=== PATIENT | male | born 1955 | race Caucasian/White ===

== ENCOUNTER 2020-02-07 19:13 | Emergency (ER) | payer OTHER, SELFPAY ==
[2019-12-11 18:00] VITALS: BMI 24.4
[2020-02-07 19:14] VITALS: BP 135/83; PULSE 78; RESP 15; TEMP 36.3; O2SAT 99; BMI 25.0
--- NOTE | 2020-02-07 19:19 | ED.VIS.GEN ---
History of Present Illness Chief Complaint: Laceration Informant: Patient Narrative: 64-year-old male presents with laceration to the dorsum of the left hand which she sustained while using a log splitter. He states he pulled his hand out and caught a piece of the metal on the outside which cut his hand. He states his last tetanus is 3 years ago. He states his pain is at a 2. He does not have any numbness or tingling. [id number]. Past Medical History - Allergies and Home Meds Allergies/Adverse Reactions: Allergies No Known Allergies Allergy (Verified 02/07/20 19:17) Primary Care Physician: Eduardo Ramirez MD [Primary Care Provider] - Surgical History: - Smoking Status: Never smoker - Family History Paternal Family History: Family History (Last Reviewed 12/11/19 @ 17:[address] Donn Danw MD) Father Diabetes Heart disease Mother Thyroid disorder Brother Myocardial infarction Family History: Reports: - - Liver cancer Review of Systems General: Denies: Chills, Fever, Sweats Eyes: Denies: Visual changes - bilaterally, Diplopia ENT: Denies: Rhinorrhea, Sore throat Cardiovascular: Denies: Chest pain, Palpitations Respiratory: Denies: Dyspnea, Cough, Dyspnea on exertion Gastrointestinal: Denies: Abdominal pain, Nausea, Vomiting, Diarrhea, Melena, Hematochezia Genitourinary: Denies: Dysuria, Hematuria, Frequency Musculoskeletal: Denies: Back pain, Extremity Pain Skin: Reports: Wounds - Laceration dorsum of left hand. Denies: Rash Neurological: Denies: Headache, Weakness, Numbness Physical Exam Vital Signs/Narrative: Vital Signs Temp Pulse Resp BP Pulse Ox 02/07/20 19:14 97.3 F L 78 15 135/83 H 99 Inital Vital Signs reviewed: Yes General: Well nourished, Well developed, No Acute Distress Head: Normocephalic Cardiovascular: Regular rate Respiratory: No distress Extremities: - - Mild tenderness to palpation around the laceration on the dorsum of the left hand. Left hand is neurovascular intact with brisk cap refill to all 5 fingers. Skin: - - 2 cm laceration dorsum of left hand. Neurological: Alert, Oriented x3 Psychological: Normal affect Diagnostic/Tx/Re-eval - Medical Decision Making Presents with laceration to the dorsum of the left hand. This is approximately 2 cm. Patient had 4 sutures placed with good approximation of the wound margins. He tolerated procedure well. Patient was given instructions on wound care as well as monitoring for signs of infection. His tetanus immunization is up-to-date. He will follow-up in 2 weeks to have sutures removed. Impression: 1. 2 cm left hand laceration Procedures - Lacerations No standard instances Depth: Skin Shape: Linear Prep: Sterile Conditions, Chlorhexadine Laceration repair: Irrigated, Lidocaine with epi Irrigated (ml): 500 Number of Sutures/Shayy: 4 Suture Information: Ethilon, 4-0 ED Disposition - Plan for ED Patient: Disposition: Home or Assisted Living Instructions: ED Laceration Hand Referrals: Eduardo Ramirez MD [Primary Care Provider] -
== END 2020-02-07 20:23 | disposition home or self-care (01) ==
PROVIDERS: Emergency Provider Student in an Organized Health Care Education/Training Program; PCP Family Medicine
DX: S61.412A Laceration without foreign body of left hand, initial encounter (principal); W27.8XXA Contact with other nonpowered hand tool, initial encounter; Y93.9 Activity, unspecified; Y92.9 Unspecified place or not applicable; Y99.9 Unspecified external cause status
CPT/HCPCS: 12001; 99282

== ENCOUNTER 2020-05-16 08:01 | Day surgery (SDC) | payer OTHER, SELFPAY ==
[2020-04-18 09:00] VITALS: BMI 25.4
[2020-05-16 08:20] VITALS: BP 123/71; PULSE 87; RESP 16; TEMP 36.7; O2SAT 100; BMI 24.7
[2020-05-16 08:30] LABS: Bedside Glucose 149 mg/dL (70-110)
--- NOTE | 2020-05-16 08:38 | HP_ITS ---
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 Is patient in pain?: No Allergies iron Allergy (Mild, Verified 04/18/20 09:02) hot flashes Medications Levothyroxine [Synthroid] 112 mcg PO DAILY 05/14/17 [History Confirmed 04/18/20] Metformin HCl [Metformin HCl ER] 1,000 mg PO BID 05/14/17 [History Confirmed 04/18/20] dulaglutide 1.5 mg/0.5 mL subcutaneous pen injector 1.5 mg SC QWEEK #2 ml 12/11/19 [Rx Confirmed 04/18/20] pen needle, diabetic 31 gauge x /16 See Rx Instructions .ROUTE .MEDSUPPLY #1,200 ea 12/11/19 [History Confirmed 04/18/20] flash glucose sensor See Rx Instructions .ROUTE .MEDSUPPLY #6 ea 01/28/20 [Rx Confirmed 04/18/20] empagliflozin 25 mg tablet 25 mg PO DAILY #90 tab 02/18/20 [Rx Confirmed 04/18/20] insulin aspart U-100 100 unit/mL (3 mL) subcutaneous pen 8 unit SC TID ml 04/18/20 [History] [facility] Medical History Diffuse peritonitis (Acute) Ruptured suppurative appendicitis (Acute) Ruptured appendix (Acute) Appendicitis (Acute) History of broken leg (Acute) Hyperlipidemia (Acute) Hypothyroidism (Acute) Type 2 diabetes mellitus (Acute) hx broken back (Acute) Surgical History Status post complete thyroidectomy (Chronic) H/O thyroidectomy (Acute) History of appendectomy (Acute) Family History Father Diabetes Heart disease Hypertension Mother Thyroid disorder Brother Myocardial infarction Social History (Updated 04/18/20 @ 09:[address] Luisito Shaikh MD) Smoking Status: Never smoker alcohol intake: never substance use type: does not use what type of physical activity do you participate in: walking HPI HPI Surgical H&P: Yes HPI: CAILIN SHARPE, is a 64 M who presents to the office today for Evaluation for endoscopy. Patient has never had a colonoscopy he has no family history of colon cancer he has been moving his bowels regularly without difficulty he is not experiencing any abdominal pain and his weight has been stable. He will occasionally have some rectal bleeding when his hemorrhoids flareup. ROS General General: No weight change, appetite, fatigue, colon cancer, breast cancer or weakness HEENT HEENT: No difficulty swallowing, eye injury, eye surgery, swollen glands or hoarseness Endo Endocrine: Yes thyroid disease and diabetes mellitus; no thyroid cancer, Hair loss, heat intolerance or cold intolerance Skin Skin: No rash or changing moles Breast Breast: No left breast lump, right breast lump, nipple discharge, breast pain, abnormal mammogram, abnormal US or breast enlargement Musc Musculoskeletal: No back problems, arthritis, rheumatoid arthritis, gout or joint pain Cardio Cardiovascular: No murmur, pacemaker, heart disease, atrial fibrillation, high blood pressure, heart attack, heart stent, palpitations, shortness of breat with exertion or chest pain Psych Psychiatric: No depression, anxiety or hearing voices Resp Respiratory: No shortness of breath, No sleep apnea, No cough, No COPD, No asthma, No emphysema, No wheezing Gastro Gastrointestinal: No abdominal pain, No nausea or vomiting, No diarrhea, No constipation, Yes blood in stool, No acid reflux, Yes hemorrhoids, No ulcers, No gallbladder problem, No black,tarry stools Casey Hematologic: No blood thinners, No blood disorders, No bleeding, No anemia, No blood clots Neuro Neurologic: No system reviewed and no additional complaints, except as docu, No as per HPI, No abnormal walking, No abnormal hearing, No abnormal movements, No abnormal speech, No behavioral changes, No burning sensations, No confusion, No seizure-like activity, No unsteadiness, No dizziness, No localized weakness, No frequent falls, No headache(s), No lack of coordination, No loss of vision, No memory loss, No numbness, No other visual disturbances, No radiating pain, No restless legs, No sensory deficit, No fainting, No tingling, No tremor(s), No weakness, No other Exam Const General: no acute distress, well developed, well hydrated Orientation: oriented to person, oriented to place, oriented to time [facility] Head: normocephalic, atraumatic Ears: external ears normal Mouth: moist mucous membranes Eyes Sclera: sclerae normal Pupils: normal by confrontation Neck Neck: no lymphadenopathy noted Neck mass: No Thyroid: thyroid normal, symmetrical Chest Chest palpation & inspection: normal inspection of the chest Breast Palpation: No nipple discharge Resp Effort & Inspection: normal respiratory effort Auscultation: clear to auscultation bilaterally Percussion: percussion normal Cardio Rate: regular rate Rhythm: regular rhythm Heart Sounds: no murmurs GI Palpation: soft, no hepatosplenomegaly, no masses, nontender Rectal Exam: other Other: Rectal exam deferred. Extrem General: normal to inspection, no clubbing, cyanosis or edema Assessment & Plan Problems 1. Encounter for screening colonoscopy Z12.11 Plan I have discussed the above with the patient. I have offered the patient colonoscopy for evaluation. I have explained the risks/benefits of the procedure and described the procedure. I have discussed the risks with the patient, including but not limited to: infection, bleeding, perforation of the GI tract requiring emergency surgery, inability to complete the procedure, injury to any internal organs, complications of anesthesia, etc. - the patient understands and agrees to proceed. I have answered all the patient's questions to the patient's satisfaction and the patient has no further questions. The patient has been given instructions for the colon cleansing preparation. Coding Level of Care Code Off vis,est,level 3 Diagnoses Encounter for screening colonoscopy Z12.11 COVID (Procedure Consent) Procedure Criteria Procedure Criteria: Yes Elective The surgeon/proceduralist and patient have discussed in detail the risk of exposure to and/or potential harm posed by the COVID-19 virus with having a surgery/procedure at this time versus the risk of? delaying the surgery/procedure. It is not possible to know either the risk of delaying the surgery or procedure or chance of getting an infection with perfect accuracy, but a joint decision was made between the patient and the surgeon/proceduralist ?to proceed at this time with the scheduled surgery/procedure as indicated on the consent form. I have re-examined the patient. There are no clinical changes since date of exam.
--- NOTE | 2020-05-16 09:15 | COLBX_PTH ---
PATIENT: CAILIN SHARPE LOC: EN U#:[id number] AGE/SX: 64/M ROOM: RE05/16/[address]: Dr. Luisito Shaikh MD : 1955 BED: DIS: 05/16/2020 SPEC #: [id number] RECD: 05/16/20 11:41 STATUS: GANESH JOHNNA #: [id number] OLAF: 05/16/20 09:[address]: Luisito Shaikh DEPT: SURGICAL PATHOLOGY RECD BY: Rocío Mcmullen ENTERED: 05/16/20 13:06 SP TYPE: COLON BX CLARK DR: Luisito Diaz, INSO[employer] AND HEEL STIFFENER-C Tissues: Sigmoid colon biopsy Procedures: Surgery Specimen Level IV HEADER OPERATION: Colonoscopy (MAC) PRE-OP DIAGNOSIS: Screening TISSUE SUBMITTED: Sigmoid colon polyp MICROSCOPIC DIAGNOSIS Sigmoid colon polyp, biopsy: Tubular adenoma. AM:megan 05/17/20 MICROSCOPIC DESCRIPTION Slides are reviewed. GROSS DESCRIPTION Received in fixative is one container labeled with the patient's name and designated sigmoid polyp. The specimen consists of multiple irregular fragments of soft tissue mixed with fecal material that in aggregate measure 2.5 x 1 x 0.2 cm. The specimen is totally submitted in one cassette. The specimen predominantly consists of fecal material. / SJ:rg 05/16/20 TC:5 CPT: 18200
--- NOTE | 2020-05-16 09:39 | OP.COLON_ITS ---
Patient Name: Félix Cole Procedure Date: 05/16/2020 9:10 AM Date of : 1955 Age: 64 Procedure: Colonoscopy Indications: Screening for colorectal malignant neoplasm Providers: Luisito Shaikh MD Referring MD: Darcy Plaza Medicines: See the Anesthesia note for documentation of the administered medications Patient Profile: This is a 64 year old male. Refer to note in patient chart for documentation of history and physical. Last Colonoscopy: none. The patient's first colonoscopy is today. Complications: No immediate complications. Procedure: Pre-Anesthesia Assessment: - Prior to the procedure, a History and Physical was performed, and patient medications and allergies were reviewed. The patient's tolerance of previous anesthesia was also reviewed. The risks and benefits of the procedure and the sedation options and risks were discussed with the patient. All questions were answered, and informed consent was obtained. Prior Anticoagulants: The patient has taken no previous anticoagulant or antiplatelet agents. ASA Grade Assessment: II - A patient with mild systemic disease. After reviewing the risks and benefits, the patient was deemed in satisfactory condition to undergo the procedure. After I obtained informed consent, the scope was passed under direct vision. Throughout the procedure, the patient's blood pressure, pulse, and oxygen saturations were monitored continuously. The adult colonoscope was introduced through the anus and advanced to the cecum, identified by appendiceal orifice and ileocecal valve. The colonoscopy was performed without difficulty. The patient tolerated the procedure well. The quality of the bowel preparation was adequate to identify polyps 6 mm and larger in size. Scope In: 9:18:44 AM Scope Withdrawal Time 0 hours 10 minutes 3 seconds Scope Out: 9:36:08 AM Total Procedure Duration Time 0 hours 17 minutes 24 seconds Findings: A 5 mm polyp was found in the sigmoid colon. The polyp was sessile. The polyp was removed with a hot snare. Resection and retrieval were complete. Non-bleeding internal hemorrhoids were found during retroflexion. The hemorrhoids were mild and small. The exam was otherwise without abnormality. Impression: - One 5 mm polyp in the sigmoid colon, removed with a hot snare. Resected and retrieved. - Non-bleeding internal hemorrhoids. - The examination was otherwise normal. Recommendation: - Discharge patient to home. - Resume previous diet. - Continue present medications. - Await pathology results. - Repeat colonoscopy in 5-10 years for surveillance. - Return to my office in 1 week. Procedure Code(s): --- Professional --- 55643, Colonoscopy, flexible; with removal of tumor(s), polyp(s), or other lesion(s) by snare technique Diagnosis Code(s): --- Professional --- Z12.11, Encounter for screening for malignant neoplasm of colon D12.5, Benign neoplasm of sigmoid colon K64.8, Other hemorrhoids CPT copyright 2017 [employer]. All rights reserved. The codes documented in this report are preliminary and upon life insurance sales review may be revised to meet current compliance requirements. MD Luisito Chew MD 05/16/2020 9:39:17 AM This report has been signed electronically. Number of Addenda: 0 Note Initiated On: 05/16/2020 9:10 AM
--- NOTE | 2020-05-16 09:40 | OP.CCLET_ITS ---
05/16/2020 Darcy Plaza Re : Colonoscopy procedure for Félix Cole Dear Joe This procedure was performed on Saturday, May 16, 2020. My impressions and recommendations are as follows: Impressions : - One 5 mm polyp in the sigmoid colon, removed with a hot snare. Resected and retrieved. - Non-bleeding internal hemorrhoids. - The examination was otherwise normal. Recommendations : - Discharge patient to home. - Resume previous diet. - Continue present medications. - Await pathology results. - Repeat colonoscopy in 5-10 years for surveillance. - Return to my office in 1 week. My findings are described in the full procedure note, which is enclosed. If I can be of further assistance, please feel free to contact me at Doctor phone number(s): , Fax: [phone], Work: . Sincerely, MD Luisito Chew MD 05/16/2020 9:39:17 AM This report has been signed electronically.
[2020-05-16 09:42] VITALS: BP 123/71; BP 131/71; PULSE 86; RESP 16; TEMP 36.6; O2SAT 100
[2020-05-16 09:45] VITALS: BP 123/71; BP 132/82; PULSE 80; RESP 16; O2SAT 100
[2020-05-16 09:50] VITALS: BP 122/77; BP 123/71; PULSE 79; RESP 16; O2SAT 100
[2020-05-16 09:55] VITALS: BP 123/71; BP 125/77; PULSE 82; RESP 16; O2SAT 100
[2020-05-16] MEDS: Lactated Ringers 1,000 ML 100 ML IV (09:57)
[2020-05-16 10:14] VITALS: BP 123/71
== END 2020-05-16 10:16 | disposition home or self-care (01) ==
LOC: EN 08:03 → AC 08:03
PROVIDERS: PCP Nurse Practitioner Family; Referring Provider Nurse Practitioner Family; Visit Provider Surgery
PROC: 0DJD8ZZ Inspection of Lower Intestinal Tract, Via Natural or Artificial Opening Endoscopic (ICD-10-PCS; CPT 45378; principal; 2020-05-16 09:10)
DX: Z12.11 Encounter for screening for malignant neoplasm of colon (principal); D12.5 Benign neoplasm of sigmoid colon; K64.8 Other hemorrhoids; Z20.828 Contact with and (suspected) exposure to other viral communicable diseases; E11.9 Type 2 diabetes mellitus without complications; E78.5 Hyperlipidemia, unspecified; E03.9 Hypothyroidism, unspecified; Z79.4 Long term (current) use of insulin; Z79.899 Other long term (current) drug therapy
CPT/HCPCS: 45385; 82962; 87426; 88305; J7120

== ENCOUNTER → 2020-12-12 16:14 | Outpatient (CLI) | payer OTHER, SELFPAY ==
[2020-12-12 15:59] VITALS: BMI 25.2
[2020-12-12 17:30] LABS: Microalbumin,Random Urine < 5.0 mg/L (NO RANGE EST.)
[2020-12-12 17:50] LABS: Vitamin D,25 Hydroxy 31.7 ng/mL
[2020-12-12 17:52] LABS: ALB/GLOB Ratio 0.9 RATIO (0.9-2.4); AST(SGOT) 14 U/L (15-37); Alanine Aminotransfer ALT/SGPT 19 U/L (16-61); Albumin, Serum 3.6 g/dL (3.2-5.0); Alkaline Phosphatase 75 U/L (45-117); Anion Gap 9 (5-15); BUN 20 mg/dL (7-18); Chloride 103 mmol/L (98-107); Cholesterol 213 mg/dL (200); Creatinine, Serum 1.11 mg/dL (0.70-1.30); EST Glomerular Filtration Rate 71 mL/min (>60); Est Glom Filt Rate - Afr Amer 86 mL/min (>60); Globulin 3.9 g/dL (2.2-4.2); Glucose 86 mg/dL (74-106); High Density Lipoprotein 67 mg/dL; Potassium 3.9 mmol/L (3.5-5.1); Protein, Total 7.5 g/dL (6.4-8.2); Sodium Level 138 mmol/L (136-145); T4 Free Direct 1.24 ng/dL (0.76-1.46); Thyroid Stim Hormone (TSH) 0.89 uIU/mL (0.358-3.74); Triglycerides 120 mg/dL; Very Low Density Lipoprotein 24 mg/dL (5-40)
== END ==
PROVIDERS: PCP Nurse Practitioner Family; Referring Provider Internal Medicine Endocrinology, Diabetes & Metabolism; Visit Provider Internal Medicine Endocrinology, Diabetes & Metabolism
DX: E11.9 Type 2 diabetes mellitus without complications (principal); E03.9 Hypothyroidism, unspecified; E55.9 Vitamin D deficiency, unspecified
CPT/HCPCS: 36415; 80053; 80061; 82043; 82306; 82570; 84439; 84443

== ENCOUNTER → 2022-04-24 | Outpatient (CLI) | payer OTHER, SELFPAY ==
[2022-04-24 17:23] LABS: Microalbumin,Random Urine < 5.0 mg/L (NO RANGE EST.)
[2022-04-24 17:29] LABS: Vitamin D,25 Hydroxy 99.2 ng/mL
[2022-04-24 17:35] LABS: ALB/GLOB Ratio 0.9 RATIO (0.9-2.4); AST(SGOT) 21 U/L (15-37); Alanine Aminotransfer ALT/SGPT 27 U/L (16-61); Albumin, Serum 3.5 g/dL (3.2-5.0); Alkaline Phosphatase 89 U/L (45-117); Anion Gap 6 (5-15); BUN 26 mg/dL (7-18); BUN/Creat Ratio 21.5 RATIO (10-20); Calcium,Total 9.5 mg/dL (8.5-10.1); Chloride 103 mmol/L (98-107); Cholesterol 207 mg/dL (200); Creatinine, Serum 1.21 mg/dL (0.70-1.30); EST Glomerular Filtration Rate 64 mL/min (>60); Est Glom Filt Rate - Afr Amer 77 mL/min (>60); Globulin 3.9 g/dL (2.2-4.2); Glucose 172 mg/dL (74-106); High Density Lipoprotein 64 mg/dL; Protein, Total 7.4 g/dL (6.4-8.2); Sodium Level 136 mmol/L (136-145); T4 Free Direct 1.08 ng/dL (0.76-1.46); Thyroid Stim Hormone (TSH) 0.89 uIU/mL (0.358-3.74); Triglycerides 261 mg/dL; Very Low Density Lipoprotein 52 mg/dL (5-40)
== END | disposition home or self-care (01) ==
LOC: LAB 16:32
PROVIDERS: PCP Nurse Practitioner Family; Referring Provider Internal Medicine Endocrinology, Diabetes & Metabolism; Visit Provider Internal Medicine Endocrinology, Diabetes & Metabolism
DX: E11.9 Type 2 diabetes mellitus without complications (principal); E03.9 Hypothyroidism, unspecified; E55.9 Vitamin D deficiency, unspecified
CPT/HCPCS: 36415; 80053; 80061; 82043; 82306; 82570; 84439; 84443

== ENCOUNTER → 2023-08-19 | Outpatient (CLI) | payer MEDICARE, OTHER, SELFPAY ==
[2023-08-19 17:43] LABS: AST(SGOT) 28 U/L (15-37); Alanine Aminotransfer ALT/SGPT 38 U/L (16-61); Albumin, Serum 3.9 g/dL (3.2-5.0); Alkaline Phosphatase 86 U/L (45-117); Anion Gap 5 (5-15); BUN 24 mg/dL (7-18); BUN/Creat Ratio 20.5 RATIO (10-20); Calcium,Total 9.3 mg/dL (8.5-10.1); Chloride 106 mmol/L (98-107); Cholesterol 197 mg/dL (200); Creatinine, Serum 1.17 mg/dL (0.70-1.30); EST Glomerular Filtration Rate 66 mL/min (>60); Est Glom Filt Rate - Afr Amer 80 mL/min (>60); Glucose 96 mg/dL (74-106); High Density Lipoprotein 68 mg/dL; Protein, Total 7.9 g/dL (6.4-8.2); Sodium Level 138 mmol/L (136-145); T4 Free Direct 1.22 ng/dL (0.76-1.46); Thyroid Stim Hormone (TSH) 0.82 uIU/mL (0.358-3.74); Triglycerides 247 mg/dL; Very Low Density Lipoprotein 49 mg/dL (5-40)
--- OUTSIDE RECORDS SUMMARY | 2023-08-19 19:04 | XMS RPT_ITS | CCD ---
Author Name Unknown Address [address] [place] [address] Organization [facility] Care Team Providers Care Rn Family Name Role Phone Genesis Wolfe PA-C Unavailable Joe CUTTING AND BONING SUPERVISOR.MARKETING SENIOR RECRUITER, DNPLuisito Primary Care Provider Najma Goodrich MD Primary Care Provider NAJMA GOODRICH Attending Unavailable NAJMA GOODRICH Primary Care Unavailable LUISITO DIAZ Primary Care Unavailable NAJMA GOODRICH Attending Unavailable Allergies Allergy Classification Reported Allergen(s) Allergy Type Date of Onset Reaction(s) Facility (1 source) Iron Drug Allergy 04-18-2020 Other: See Comments [facility] (1 source) Niacin Drug Allergy 06-04-2023 Other: See Comments [facility] Medications Completed/Discontinued Medications Medication Drug Class(es) Dates Sig (Normalized) Sig (Original) CALCIUM CARBONATE (4 sources) Start: 05-27-2017 take 1 tablet by mouth once daily EQL NIACIN FLUSH FREE 500 MG CAPS One tablet by mouth daily INOSITOL NIACINATE [id number] Tammy Mendoza Problems Active Problems Problem Classification Problem Date Documented Date Episodic/Chronic Diabetes mellitus without complication (6 sources) Type 2 diabetes mellitus; Translations: [Insulin treated type 2 diabetes mellitus] Onset: 07-01-1989 05-27-2017 Chronic Disorders of lipid metabolism (3 sources) Hyperlipidemia; Translations: [Hyperlipidemia, unspecified] Onset: 03-17-2021 03-17-2021 Chronic Immunizations and screening for infectious disease (1 source) Vaccination needed; Translations: [Encounter for immunization] Episodic Other ear and sense organ disorders (1 source) Impacted cerumen in right ear; Translations: [Impacted cerumen, right ear] 06-04-2023 Episodic Other male genital disorders (3 sources) Secondary erectile dysfunction; Translations: [Male erectile dysfunction, unspecified] Onset: 03-17-2021 03-17-2021 Chronic Thyroid disorders (3 sources) Hypothyroidism; Translations: [Acquired hypothyroidism] Onset: 05-27-2017 05-27-2017 Chronic Unclassified (2 sources) Thyroidectomy ; Translations: [Postprocedural hypothyroidism] Onset: 05-27-2017 05-27-2017 Unclassified (1 source) No current problems or disability 05-27-2017 Past or Other Problems Problem Classification Problem Date Documented Da te Episodic/Chronic Appendicitis and other appendiceal conditions (2 sources) Acute appendicitis with generalized peritonitis; Translations: [Acute appendicitis with generalized peritonitis] Onset: 05-27-2017 05-27-2017 Episodic Results Test Name Value Interpretation Reference Range Facil ity Vital Signs Date Time Vital Sign Value Performing Clinician Facility 06-04-2023 15:33-0500 Body weight 68.67 kg Najma Goodrich MD Work Phone: [facility] 06-04-2023 15:33-0500 Diastolic blood pressure 80 mm[Hg] Najma Goodrich MD Work Phone: [facility] 06-04-2023 15:33-0500 Heart rate 80 /min Najma Goodrich MD Work Phone: [facility] 06-04-2023 15:33-0500 Respiratory rate 16 /min Najma Goodrich MD Work Phone: [facility] 06-04-2023 15:33-0500 Systolic blood pressure 138 mm[Hg] Najma Goodrich MD Work Phone: [facility] 09-10-2022 16:50-0400 Body height 165.1 cm Najma Goodrich MD Work Phone: [facility] 09-10-2022 16:50-0400 Body weight 73.12 kg Najma Goodrich MD Work Phone: [facility] 09-10-2022 16:50-0400 Diastolic blood pressure 78 mm[Hg] Najma Goodrich MD Work Phone: [facility] 09-10-2022 16:50-0400 Heart rate 82 /min Najma Goodrich MD Work Phone: [facility] 09-10-2022 16:50-0400 Respiratory rate 16 /min Najma Goodrich MD Work Phone: [facility] 09-10-2022 16:50-0400 Systolic blood pressure 136 mm[Hg] Najma Goodrich MD Work Phone: [facility] 05-27-2017 09:010500 BMI (Body Mass Index) 25.79 kg/m2 Genesis Wolfe PA-C [facility] [place] Work Phone: 05-27-2017 09:010500 Height 165.1 cm Genesis Wolfe PA-C [facility] [place] Work Phone: 05-27-2017 09:010500 Weight 70.31 kg Genesis Wolfe PA-C [facility] [place] Work Phone: Encounters Encounter Date Encounter Type Care Provider Facility Start: 06-04-2023 End: 06-04-2023 ambulatory NAJMA GOODRICH Facility:[facility] Start: 06-04-2023 End: 06-04-2023 Patient encounter procedure Najma Goodrich MD Work Phone: [facility] Procedures Date Procedure Procedure Detail Performing Clinician Start: 08-07-2022 Hemoglobin A1c/Hemoglobin.total in Blood [facility] Provider Start: 05-16-2020 Colonoscopy Luisiot felipe CUTTING AND BONING SUPERVISOR.MARKETING SENIOR RECRUITER, DNP Work Phone: Plan of Treatment Date Care Activity Detail Author Start: 03-14-2028 Urine microalbumin profile [facility] Start: 09-12-2025 PROSTATE CANCER SCREENING DISCUSSION PROSTATE CANCER SCREENING DISCUSSION [facility] Start: 05-16-2025 Colonoscopy COLONOSCOPY [facility] Start: 05-16-2025 COLORECTAL CANCER SCREENING COLORECTAL CANCER SCREENING [facility] Start: 06-04-2024 Annual PCP Team Chronic Disease Visit Annual PCP Team Chronic Disease Visit [facility] Start: 04-22-2024 Hepatitis C antibody, confirmatory test Dilated Retinal Exam [facility] Start: 09-11-2023 ANNUAL PCP TEAM CHRONIC DISEASE VISIT ANNUAL PCP TEAM CHRONIC DISEASE VISIT [facility] Start: 04-13-2023 Hepatitis C antibody, confirmatory test DILATED RETINAL EXAM [facility] Start: 02-04-2023 Hemoglobin A1c/Hemoglobin.total in Blood HBA1C [facility] Start: 09-18-2022 ANNUAL PCP TEAM CHRONIC DISEASE VISIT ANNUAL PCP TEAM CHRONIC DISEASE VISIT [facility] Start: 08-04-2022 3 comp foot exam completed DIABETIC FOOT EXAM [facility] Start: 03-17-2022 PNEUMOCOCCAL: 65+ (2 - PCV) PNEUMOCOCCAL: 65+ (2 - PCV) [facility] Start: 12-28-2021 Hepatitis B surface antibody level LDL CHOLESTEROL [facility] Start: 07-01-2021 ADVANCE DIRECTIVE DISCUSSION ADVANCE DIRECTIVE DISCUSSION [facility] Start: 07-01-2021 DEPRESSION ASSESSMENT DEPRESSION ASSESSMENT [facility] Start: 06-19-2021 COVID-19 VACCINE (4 - Booster for Pfizer series) COVID-19 VACCINE (4 - Booster for Pfizer series) [facility] Start: 06-13-2021 Hepatitis B screening URINE ALBUMIN:CREATININE RATIO [facility] Start: 05-31-2021 Hemoglobin A1c/Hemoglobin.total in Blood HBA1C [facility] Start: 05-16-2021 Colonoscopy COLONOSCOPY [facility] Start: 05-16-2021 COLORECTAL CANCER SCREENING COLORECTAL CANCER SCREENING [facility] Start: 03-25-2021 FECAL OCCULT BLOOD FECAL OCCULT BLOOD [facility] Start: 05-27-2017 End: 05-27-2017 Appointment Appointment [facility] Work Phone: Start: 08-05-2012 SHINGRIX VACCINE (2 of 3) SHINGRIX VACCINE (2 of 3) [facility] Start: 11-11-2000 COLOGUARD (FIT-DNA) COLOGUARD (FIT-DNA) [facility] Start: 11-11-[address] COLONOGRAPHY [facility] Start: 11-11-2000 SIGMOIDOSCOPY SIGMOIDOSCOPY [facility] Removal impacted cer umen irrigation/lvg unilat AMBULATORY EAR LAVAGE/IRRIGATION Procedures Routine Impacted cerumen of right ear Ordered: 06/04/2023 [facility] Work Phone: Immunizations Immunization Date Immunization Notes Care Provider Fa merno 05-25-2023 influenza, high dose seasonal, preservative-free Najma Goodrich MD Work Phone: [facility] 05-13-2023 respiratory syncytia l virus (RSV) vaccine, adjuvanted (AREXVY) Najma Goodrich MD Work Phone: [facility] 04-14-2023 COVID-19 vaccine, ag e 12+ yr, 2022- season (MODERNA) Najma Goodrich MD Work Phone: [facility] 09-10-2022 pneumococcal Conjuga te, unspecified formulation Najma Goodrich MD Work Phone: [facility] Work Phone: 09-10-2022 pneumococcal (PCV20) vaccine, 20 valent (PREVNAR 20) Najma Goodrich MD Work Phone: [facility] 03-31-2022 influenza, high dose seasonal, preservative-free Luisito Diaz APRN.[facility] Work Phone: [facility] 06-05-2021 influenza, injectabl e, quadrivalent, preservative free Luisito Diaz APRN.[facility] Work Phone: [facility] Work Phone: 04-24-2021 COVID-19 original vaccine, age 12+ yr, monovalent ([employer] - PURPLE TOP) Luisito Diaz APRN.[facility] Work Phone: [facility] Work Phone: 03-17-2021 pneumococcal polysaccharide vaccine, 23 valent Luisito Diaz APRN.[facility] Work Phone: [facility] 03-25-2020 Influenza, injectabl e, Madin [place] Canine Kidney, preservative free, quadrivalent Luisito Diaz APRN.[facility] Work Phone: [facility] Work Phone: 04-16-2019 influenza, injectabl e, quadrivalent, preservative free Luisito Diaz APRN.[facility] Work Phone: [facility] Work Phone: 06-10-2012 zoster vaccine, live Luisito Blaz CUTTING AND BONING SUPERVISOR.MARKETING SENIOR RECRUITER, DNP Work Phone: [facility] Work Phone: 02-04-2012 tetanus toxoid, redu pola diphtheria toxoid, and acellular pertussis vaccine, adsorbed Luisito Blaz CUTTING AND BONING SUPERVISOR.MARKETING SENIOR RECRUITER, DNP Work Phone: [facility] Work Phone: Payers Date Payer Category Payer Private Health Insurance NANCY HANSON OA [id number] 2021-Present [phone] [address] [place] [address] [employer] [id number] 2021 Private Health Insurance [id number] Social History Date Type Detail Facility Start: 03-14-2020 End: 09-10-2022 Tobacco smoking status NHIS Never smoked tobacco [facility] Work Phone: Start: 03-14-2020 End: 09-10-2022 Tobacco use and exposure Smokeless tobacco non-user [facility] Work Phone: Start: 09-18-2021 End: 06-04-2023 Alcohol intake Lifetime non-drinker (finding) [facility] Start: 03-14-2020 History SDOH Alcohol Frequency 1 [facility] Start: 1955 Sex Assigned At Male [facility] Work Phone: Start: 03-14-2020 End: 06-04-2023 History of Social function [facility] Work Phone: Start: 03-14-2020 End: 06-04-2023 Alcohol Use Disorder Identification Test - Consumption [AUDIT-C] [facility] Work Phone: How often to you hav e a drink containing alcohol? Never [facility] Work Phone: Average Number of Drinks Not on file [facility] Work Phone: Start: 03-14-2020 Gender identity Identifies as male gender (finding) [facility] Work Phone: Start: 03-14-2020 Sexual orientation Heterosexual (finding) [facility] Work Phone: Progress note 06-04-2023 Note Date & Type Note Facility 06-04-2023 Note HNO ID: [id number] Author: Najma Goodrich MD Service: ? Author Type: Physician Type: Progress Notes Filed: 06/04/2023 5:09 PM Note Text: Chief Complaint Patient presents with: Ear Problem HPI Cailni Cole is a 67 year old male who presents here today for an acute visit. Pt here today with c/o of earwax build up. Reports build up is worse in his right ear vs left, but feels that both need it. States the last couple mornings he's woke up he's had difficulty hearing out of his right ear. Denies using anything in his ears to help with wax removal, but he should. In the past he's had ear pain when this occurs, but this has yet started. Last had ear wax removed in 2019 by Gaston Diaz, MARKETING SENIOR RECRUITER removed with curette, no ear lavage needed. DM - Follows with Endo, Dr. Dawn. Last A1c was 6.3. Has been doing really well, recently added Mounjaro 5 mg weekly and Jardiance 25 mg to his regimen. Using less insulin daily. Past medical history, appointments, medications, allergies reviewed. 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 Quan THYROIDECTOMY TOTAL/COMPLETE Bilateral 1984 Family History FAMILY HISTORY Problem Relation Age of Onset Osteoporosis Mother Heart disease Father Coronary Artery Disease Father Hyperlipidemia Father Diabetes Father other (Liver cancer) Father Heart Attack Brother Obesity Brother Coronary Artery Disease Brother Cataract Brother Colon Cancer Maternal Grandmother Prostate Cancer Maternal Grandfather Depression Paternal Grandmother Heart disease Paternal Grandfather Aortic Valve No Known Problems Daughter No Known Problems Son Patient Allergies ALLERGIES No Known Allergies Current Medications Current Outpatient Medications on File Prior to Visit Medication Sig insulin aspart U-100 (NOVOLOG FLEXPEN U-100 INSULIN) 100 unit/mL (3 mL) Using 8 units AM, 8 units Lunch, and 16 units at dinner metFORMIN ER (GLUCOPHAGE XR) 500 mg 24 hr tablet Take 500 mg by mouth daily with breakfast. Taking 2 tablets by mouth twice daily levothyroxine 112 mcg cap Take 112 mcg by mouth once daily. No current facility-administered medications on file prior to visit. Social History Social History Tobacco Use Smoking status: Never Smokeless tobacco: Never Vaping Use Vaping Use: Never used Substance Use Topics Alcohol use: Never Drug use: Never EXAM: BP 138/80 (BP Site: Left Arm, BP Position: Sitting, BP Cuff Size: Regular Adult) Pulse 80 Resp 16 Wt 68.7 kg (151 lb 6.4 oz) BMI 25.19 kg/m? General Appearance: Well appearing, alert, in no acute distress, well-hydrated, well nourished.. Ears: External ears normal, right ear canal plugged. Left canal open with some wax noted. Health Maintenance List Shingrix Vaccine(2 of 3) due on 08/05/2012 Urine Albumin:Creatinine Ratio due on 06/13/2021 LDL Cholesterol due on 12/28/2021 Diabetic Foot Exam due on 08/04/2022 HbA1C due on 02/04/2023 Annual PCP Team Chronic Disease Visit due on 09/11/2023 Dilated Retinal Exam due on 04/22/2024 Colorectal Cancer Screening due on 05/16/2025 Prostate Cancer Screening Discussion due on 09/12/2025 DTaP,Tdap,Td Vaccine(3 - Td or Tdap) due on 03/14/2028 Influenza Vaccine Completed Advance Directive Discussion Completed Depression Assessment Completed RSV Vaccine Completed Hepatitis C Screening Completed Covid-19 Vaccine Completed Pneumococcal Vaccine: 65+ Completed Data reviewed Epic ASSESSMENT/PLAN: 1. Impacted cerumen of right ear - ICD9: 380.4, ICD10: H61.21 - Ear lavage to right ear. Canal open with mild residual cerumen after flusighin. Recommended use of OTC debrox. I agree with the Chief Complaint, ROS, and Past Histories independently gathered by the clinical java support engineer and the remaining scribed note accurately describes my personal service to the patient. Medical Decision Making: Problems: Low: Acute, uncomplicated illness or injury Risk: Low: Low risk from testing/treatment Medical Decision Making Level: 3 - Low Najma Goodrich MD The documentation for this note was completed by Kari York Ma acting as scribe for Najma Goodrich MD. June 04, 2023 3:41 PM. Kari York Ma Ambulatory Ear Lavage Pre-treatment: Warm water Treatment: Right ear Equipment and Irrigation solution and Volume used: Single use syringe with single use irrigation tip Water Total Ir (more content not included)... [facility] History of Present illness Narrative 06-04-2023 Najma Goodrich MD - 06/04/2023 3:40 PM EST Note Date & Type Note Facility 06-04-2023 History of Presen t illness Narrative Chief Complaint Patient presents with: Ear Problem HPI Cailin Cole is a 67 year old male who presents here today for an acute visit. Pt here today with c/o of earwax build up. Reports build up is worse in his right ear vs left, but feels that both need it. States the last couple mornings he's woke up he's had difficulty hearing out of his right ear. Denies using anything in his ears to help with wax removal, but he should. In the past he's had ear pain when this occurs, but this has yet started. Last had ear wax removed in 2019 by Gaston Diaz, MARKETING SENIOR RECRUITER removed with curette, no ear lavage needed. DM - Follows with Dr. López Camarena. Last A1c was 6.3. Has been doing really well, recently added Mounjaro 5 mg weekly and Jardiance 25 mg to his regimen. Using less insulin daily. Past medical history, appointments, medications, allergies reviewed. 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 Quan THYROIDECTOMY TOTAL/COMPLETE Bilateral 1984 Family History FAMILY HISTORY Problem Relation Age of Onset Osteoporosis Mother Heart disease Father Coronary Artery Disease Father Hyperlipidemia Father Diabetes Father other (Liver cancer) Father Heart Attack Brother Obesity Brother Coronary Artery Disease Brother Cataract Brother Colon Cancer Maternal Grandmother Prostate Cancer Maternal Grandfather Depression Paternal Grandmother Heart disease Paternal Grandfather Aortic Valve No Known Problems Daughter No Known Problems Son Patient Allergies ALLERGIES No Known Allergies Current Medications Current Outpatient Medications on File Prior to Visit Medication Sig insulin aspart U-100 (NOVOLOG FLEXPEN U-100 INSULIN) 100 unit/mL (3 mL) Using 8 units AM, 8 units Lunch, and 16 units at dinner metFORMIN ER (GLUCOPHAGE XR) 500 mg 24 hr tablet Take 500 mg by mouth daily with breakfast. Taking 2 tablets by mouth twice daily levothyroxine 112 mcg cap Take 112 mcg by mouth once daily. No current facility-administered medications on file prior to visit. Social History Social History Tobacco Use Smoking status: Never Smokeless tobacco: Never Vaping Use Vaping Use: Never used Substance Use Topics Alcohol use: Never Drug use: Never EXAM: BP 138/80 (BP Site: Left Arm, BP Position: Sitting, BP Cuff Size: Regular Adult) Pulse 80 Resp 16 Wt 68.7 kg (151 lb 6.4 oz) BMI 25.19 kg/m General Appearance: Well appearing, alert, in no acute distress, well-hydrated, well nourished.. Ears: External ears normal, right ear canal plugged. Left canal open with some wax noted. Health Maintenance List Shingrix Vaccine(2 of 3) due on 08/05/2012 Urine Albumin:Creatinine Ratio due on 06/13/2021 LDL Cholesterol due on 12/28/2021 Diabetic Foot Exam due on 08/04/2022 HbA1C due on 02/04/2023 Annual PCP Team Chronic Disease Visit due on 09/11/2023 Dilated Retinal Exam due on 04/22/2024 Colorectal Cancer Screening due on 05/16/2025 Prostate Cancer Screening Discussion due on 09/12/2025 DTaP,Tdap,Td Vaccine(3 - Td or Tdap) due on 03/14/2028 Influenza Vaccine Completed Advance Directive Discussion Completed Depression Assessment Completed RSV Vaccine Completed Hepatitis C Screening Completed Covid-19 Vaccine Completed Pneumococcal Vaccine: 65+ Completed Data reviewed Epic ASSESSMENT/PLAN: 1. Impacted cerumen of right ear - ICD9: 380.4, ICD10: H61.21 - Ear lavage to right ear. Canal open with mild residual cerumen after flusighin. Recommended use of OTC debrox. I agree with the Chief Complaint, ROS, and Past Histories independently gathered by the clinical java support engineer and the remaining scribed note accurately describes my personal service to the patient. Medical Decision Making: Problems: Low: Acute, uncomplicated illness or injury Risk: Low: Low risk from testing/treatment Medical Decision Making Level: 3 - Low Najma Goodrich MD The documentation for this note was completed by Kari York Ma acting as scribe for Najma Goodrich MD. June 04, 2023 3:41 PM. Kari York Ma Ambulatory Ear Lavage Pre-treatment: Warm water Treatment: Right ear Equipment and Irrigation solution and Volume used: Single use syringe with single use irrigation tip Water Total Irrigation Volume: 500 mL Return flow appearance: Other clear water with chunks of wax debri and large clump of ear wax Patient tolerated procedure: yes Tympanic membrane assessment: Tympanic membrane assessed by LIP pre and post procedure documented in this encounter [facility] Progress note 09-10-2022 Note Date & Type Note Facility 09-10-2022 Note HNO ID: [id number] Author: Najma Goodrich MD Service: ? Author Type: Physician Type: Progress Notes Filed: 09/10/2022 5:50 PM Note Text: Chief Complaint Patient presents with: Establish Care HPI Cailin Cole is a 66 year old male who presents here today for est care. Former pt of Gaston Diaz, last OV August 2021. Dr Hernandez in [place] prior to that. , 2 children and 4 grand daughters. Likes to water ski on [place] in the summer. Has [address] home that he built 25 years ago. Still working registered phlebotomist part time. Mini Cog test completed 11/02. No issues with feeling depressed or hopeless. Does not have an advanced directive. No bowel, Gi, or urinary issues. Uses Viagra prn ED. States he had colonoscopy done at the [facility] by Dr. Shaikh; one tubular adenoma removed; 5 year follow up recommended. Uses Prevacid OTC at bedtime to help with any reflux. No chest pains, dizziness, or SOB. DM: Follows with Dr. Donn Camarena. Taking Metformin xr 500 mg 2 pills BID and Novolog TID. Does check BS regularly, has freestyle Román. Sugar reading at this time 111. A1c on 08/07 was 6.8. Thyroid: Follows with Dr. Donn Camarena. Taking Levothyroxine 112 mcg daily. No missed dosages. Past medical history, appointments, medications, allergies reviewed. Previous Medical History PAST MEDICAL HISTORY Diagnosis Date ED (erectile dysfunction) of organic origin 03/17/2021 Goiter diffuse History of thyroid surgery 1984 Hyperlipidemia LDL goal <100 03/17/2021 Insulin dependent type 2 diabetes mellitus (HCC) 1989 Previous Surgical History PAST SURGICAL HISTORY Procedure Laterality Date APPENDECTOMY N/A 2017 COLONOSCOPY GEN ANES N/A 04/18/2020 1 benign polyp repeat in 5 years LEG SURGERY HX Left 1990 REMV CATARACT EXTRACAP,INSERT LENS Bilateral 11/21/20 left and 12/07/20 on the right [facility] Dr. Quan THYROIDECTOMY TOTAL/COMPLETE Bilateral 1984 Family History FAMILY HISTORY Problem Relation Age of Onset Osteoporosis Mother Heart disease Father Coronary Artery Disease Father Hyperlipidemia Father Diabetes Father other (Liver cancer) Father Heart Attack Brother Obesity Brother Coronary Artery Disease Brother Cataract Brother Colon Cancer Maternal Grandmother Prostate Cancer Maternal Grandfather Depression Paternal Grandmother Heart disease Paternal Grandfather Aortic Valve No Known Problems Daughter No Known Problems Son Patient Allergies ALLERGIES No Known Allergies Current Medications Current Outpatient Medications on File Prior to Visit Medication Sig metFORMIN ER (GLUCOPHAGE XR) 500 mg 24 hr tablet Take 500 mg by mouth daily with breakfast. Taking 2 tablets by mouth twice daily empagliflozin (JARDIANCE) 25 mg tablet Take 25 mg by mouth daily with breakfast. (Patient not taking: Reported on 09/18/2021 ) levothyroxine 112 mcg cap Take 112 mcg by mouth once daily. insulin aspart U-100 (NOVOLOG FLEXPEN U-100 INSULIN) 100 unit/mL (3 mL) Inject subcutaneously three times daily before meals. No current facility-administered medications on file prior to visit. Social History Social History Tobacco Use Smoking status: Never Smokeless tobacco: Never Vaping Use Vaping Use: Never used Substance Use Topics Alcohol use: Never Drug use: Never EXAM: BP 136/78 Pulse 82 Resp 16 Ht 165.1 cm (5' 5 ) Wt 73.1 kg (161 lb 3.2 oz) BMI 26.83 kg/m? General Appearance: Well appearing, alert, in no acute distress, well-hydrated, well nourished.. Lungs: Lungs clear to auscultation. No wheezing, rhonchi, rales.. Heart: RRR without murmur, gallop, or rubs. No ectopy. Health Maintenance List SHINGRIX VACCINE(2 of 3) due on 08/05/2012 COLORECTAL CANCER SCREENING due on 05/16/2021 HBA1C due on 05/31/2021 URINE ALBUMIN:CREATININE RATIO due on 06/13/2021 COVID-19 VACCINE(4 - Booster for Pfizer series) due on 06/19/2021 LDL CHOLESTEROL due on 12/28/2021 PNEUMOCOCCAL: 65+(2 - PCV) due on 03/17/2022 ADVANCE DIRECTIVE DISCUSSION Never done DEPRESSION ASSESSMENT Never done DIABETIC FOOT EXAM due on 08/04/2022 ANNUAL PCP TEAM CHRONIC DISEASE VISIT due on 09/18/2022 DILATED RETINAL EXAM due on 04/13/2023 PROSTATE CANCER SCREENING DISCUSSION due on 09/12/2025 DTAP,TDAP,TD(3 - Td or Tdap) due on 03/14/2028 INFLUENZA Completed HEPATITIS C SCREENING Completed Data reviewed none ASSESSMENT/PLAN: 1. Insulin dependent type 2 diabetes mellitus (HCC) - ICD9: 250.00, V58.67, ICD10: E11.9, Z79.4 (primary diagnosis) - Controlled - Continue current medications - Follow with Dr Dawn 2. Need for vaccination - ICD9: V05.9, ICD10: Z23 Prevnar 20 3. Hypothyroidism, acquired - ICD9: 244.9, ICD10: E03.9 - Instructed patient on importance of taking on an empty stomach either first thing in the morning or at bedtime. - continue current dose of Synthroid 0.[address] Dawn Follow up in 1 year or prn I agr (more content not included)... [facility] History of Present illness Narrative 09-10-2022 Najma Goodrich MD - 09/10/2022 5:00 PM EDT Note Date & Type Note Facility 09-10-2022 History of Presen t illness Narrative Chief Complaint Patient presents with: Establish Care HPI Cailin Cole is a 66 year old male who presents here today for est care. Former pt of [facility], last OV August 2021. Dr Hernandez in [place] prior to that. , 2 children and 4 grand daughters. Likes to water ski on [place] in the summer. Has geodome home that he built 25 years ago. Still working registered phlebotomist part time. Mini Cog test completed 11/02. No issues with feeling depressed or hopeless. Does not have an advanced directive. No bowel, Gi, or urinary issues. Uses Viagra prn ED. States he had colonoscopy done at the [facility] by Dr. Shaikh; one tubular adenoma removed; 5 year follow up recommended. Uses Prevacid OTC at bedtime to help with any reflux. No chest pains, dizziness, or SOB. DM: Follows with Dr. Donn Camarena. Taking Metformin xr 500 mg 2 pills BID and Novolog TID. Does check BS regularly, has freestyle Román. Sugar reading at this time 111. A1c on 08/07 was 6.8. Thyroid: Follows with Dr. Donn Camarena. Taking Levothyroxine 112 mcg daily. No missed dosages. Past medical history, appointments, medications, allergies reviewed. 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 Quan THYROIDECTOMY TOTAL/COMPLETE Bilateral 1984 Family History FAMILY HISTORY Problem Relation Age of Onset Osteoporosis Mother Heart disease Father Coronary Artery Disease Father Hyperlipidemia Father Diabetes Father other (Liver cancer) Father Heart Attack Brother Obesity Brother Coronary Artery Disease Brother Cataract Brother Colon Cancer Maternal Grandmother Prostate Cancer Maternal Grandfather Depression Paternal Grandmother Heart disease Paternal Grandfather Aortic Valve No Known Problems Daughter No Known Problems Son Patient Allergies ALLERGIES No Known Allergies Current Medications Current Outpatient Medications on File Prior to Visit Medication Sig metFORMIN ER (GLUCOPHAGE XR) 500 mg 24 hr tablet Take 500 mg by mouth daily with breakfast. Taking 2 tablets by mouth twice daily empagliflozin (JARDIANCE) 25 mg tablet Take 25 mg by mouth daily with breakfast. (Patient not taking: Reported on 09/18/2021 ) levothyroxine 112 mcg cap Take 112 mcg by mouth once daily. insulin aspart U-100 (NOVOLOG FLEXPEN U-100 INSULIN) 100 unit/mL (3 mL) Inject subcutaneously three times daily before meals. No current facility-administered medications on file prior to visit. Social History Social History Tobacco Use Smoking status: Never Smokeless tobacco: Never Vaping Use Vaping Use: Never used Substance Use Topics Alcohol use: Never Drug use: Never EXAM: BP 136/78 Pulse 82 Resp 16 Ht 165.1 cm (5' 5 ) Wt 73.1 kg (161 lb 3.2 oz) BMI 26.83 kg/m General Appearance: Well appearing, alert, in no acute distress, well-hydrated, well nourished.. Lungs: Lungs clear to auscultation. No wheezing, rhonchi, rales.. Heart: RRR without murmur, gallop, or rubs. No ectopy. Health Maintenance List SHINGRIX VACCINE(2 of 3) due on 08/05/2012 COLORECTAL CANCER SCREENING due on 05/16/2021 HBA1C due on 05/31/2021 URINE ALBUMIN:CREATININE RATIO due on 06/13/2021 COVID-19 VACCINE(4 - Booster for Pfizer series) due on 06/19/2021 LDL CHOLESTEROL due on 12/28/2021 PNEUMOCOCCAL: 65+(2 - PCV) due on 03/17/2022 ADVANCE DIRECTIVE DISCUSSION Never done DEPRESSION ASSESSMENT Never done DIABETIC FOOT EXAM due on 08/04/2022 ANNUAL PCP TEAM CHRONIC DISEASE VISIT due on 09/18/2022 DILATED RETINAL EXAM due on 04/13/2023 PROSTATE CANCER SCREENING DISCUSSION due on 09/12/2025 DTAP,TDAP,TD(3 - Td or Tdap) due on 03/14/2028 INFLUENZA Completed HEPATITIS C SCREENING Completed Data reviewed none ASSESSMENT/PLAN: 1. Insulin dependent type 2 diabetes mellitus (HCC) - ICD9: 250.00, V58.67, ICD10: E11.9, Z79.4 (primary diagnosis) - Controlled - Continue current medications - Follow with Dr Dawn 2. Need for vaccination - ICD9: V05.9, ICD10: Z23 Prevnar 20 3. Hypothyroidism, acquired - ICD9: 244.9, ICD10: E03.9 - Instructed patient on importance of taking on an empty stomach either first thing in the morning or at bedtime. - continue current dose of Synthroid 0.[address] Dawn Follow up in 1 year or prn I agree with the Chief Complaint, ROS, and Past Histories independently gathered by the clinical java support engineer and the remaining scribed note accurately describes my personal service to the patient. Medical Decision Making: Problems: Moderate: 2+ stable chronic illnesses Data: Unique test result(s) reviewed: 1 Risk: Moderate: Drug management Medical Decision Making Level: 4 - Moderate Najma Goodrich MD The documentation for this note was completed by Celina Haas Ma acting as scribe for Najma Goodrich MD. September 10, 2022 4:44 PM. Celina Haas Ma documented in this encounter [facility] Note 06-13-2022 Telephone Encounter - Julianna Diallo RN - 06/13/2022 1:44 PM ESTTelephone Encounter - Kendra Fournier RN - 06/13/2022 11:10 AM EST Note Date & Type Note Facility 06-13-2022 Miscellaneous Notes Formattin g of this note might be different from the original. Patient calls and states that Dr. Dawn does manage his Diabetes. Patient set up an establish care visit with Dr. Goodrich. Julianna Diallo RN Left voicemail on identified machine asking pt to return call and let us know who manages his diabetes care. If he would like us to manage it, we can get him set up for the Structured DM program and have his A1C drawn. Kendra Fournier RN Images from the original note were not included. Alvaro Clark APRN.MARKETING SENIOR RECRUITER You 6 days ago Patient is following with Dr Dawn with endo at [place]. Not established with anyone. Likely getting Hgb A1c with her. If he wishes to continue primary care services with us, we can order labs at that visit. Alvaro Alvaro, I am reviewing the [employer] dashboard for patients who might be appropriate referrals to our Structured DM program. This patient may be a good candidate. If you agree, can you please place orders for the Structured DM program and we can reach out to patient to schedule appointments. Also, I don't see where this patient has had an A1C in almost 2 years. Thank you! Kendra Fournier RN documented in this encounter [facility] Evaluation note Note Date & Type Note Facility documented in this encounter [facility] Evaluation note Note Date & Type Note Facility documented in this encounter [facility] Summary Purpose Family History No Family History Records FoundNo Family History Records Found Advance Directives No Advanced Directives Records FoundNo Advanced Directives Records Found Additional Source Comments (unrecognized sect ion and content) No Status Records FoundNo Status Records Found INFORMATION SOURCE (unrecogn ized section and content) DATE CREATED AUTHOR AUTHOR'S ORGANIZ ATION 06/07/2023 [facility] Source Comments (unrecognize d section and content) In the event this informatio n is protected by the Federal Confidentiality of Alcohol and Drug Abuse Patient Records regulations: The Federal rules restrict any use of the information to criminally investigate or prosecute any alcohol or drug abuse patient.[facility] the event this information is protected by the Federal Confidentiality of Alcohol and Drug Abuse Patient Records regulations: The Federal rules restrict any use of the information to criminally investigate or prosecute any alcohol or drug abuse patient.[facility] the event this information is protected by the Federal Confidentiality of Alcohol and Drug Abuse Patient Records regulations: The Federal rules restrict any use of the information to criminally investigate or prosecute any alcohol or drug abuse patient.[facility] Reason for Visit (unrecogniz ed section and content) Reason Comments Establish Care Reason Comments Ear Problem Care Teams (unrecognized sec tion and content) Rn Family Relationship Specialty Start Date End Date Najma Goodrich MD [address] [place] [address] PCP - General Family Medicine 09/10/22 Rn Family Relationship Specialty Start Date End Date Najma Goodrich MD [address] [place] [address] PCP - General Family Medicine 09/10/22 FOR RECORDS PERTAINING TO PATIENTS WHO ARE OR HAVE BEEN ENROLLED IN A CHEMICAL DEPENDENCY/SUBSTANCEABUSE PROGRAM, SOME INFORMATION MAY BE OMITTED. This clinical summary was aggregated from multiple sources. Caution should be exercised in using it in the provision of clinical care. This summary normalizes information from multiple sources, and as a consequence, information in this document may materially change the coding, format and clinical context of patient data. In addition, data may be omitted in some cases. CLINICAL DECISIONS SHOULD BE BASED ON THE PRIMARY CLINICAL RECORDS. [facility] [facility]. provides no warranty or guarantee of the accuracy or completeness of information in this document.
== END | disposition home or self-care (01) ==
LOC: LAB 16:52
PROVIDERS: PCP Nurse Practitioner Family; Referring Provider Internal Medicine Endocrinology, Diabetes & Metabolism; Visit Provider Internal Medicine Endocrinology, Diabetes & Metabolism
DX: E11.649 Type 2 diabetes mellitus with hypoglycemia without coma (principal); Z79.4 Long term (current) use of insulin; E89.0 Postprocedural hypothyroidism
CPT/HCPCS: 36415; 80053; 80061; 84439; 84443

== ENCOUNTER → 2024-08-21 | Outpatient (CLI) | payer MEDICARE, OTHER, SELFPAY ==
[2024-08-21 10:11] LABS: AST(SGOT) 18 U/L (15-37); Alanine Aminotransfer ALT/SGPT 25 U/L (16-61); Albumin, Serum 3.6 g/dL (3.2-5.0); Alkaline Phosphatase 71 U/L (45-117); Anion Gap 5 (5-15); BUN 19 mg/dL (7-18); BUN/Creat Ratio 19.6 RATIO (10-20); Calcium,Total 9.6 mg/dL (8.5-10.1); Chloride 106 mmol/L (98-107); Cholesterol 201 mg/dL (200); Creatinine, Serum 0.97 mg/dL (0.70-1.30); EST Glomerular Filtration Rate 82 mL/min (>60); Est Glom Filt Rate - Afr Amer 99 mL/min (>60); Globulin 3.7 g/dL (2.2-4.2); Glucose 67 mg/dL (74-106); High Density Lipoprotein 80 mg/dL; Potassium 3.9 mmol/L (3.5-5.1); Protein, Total 7.3 g/dL (6.4-8.2); Sodium Level 138 mmol/L (136-145); T4 Free Direct 1.21 ng/dL (0.76-1.46); Thyroid Stim Hormone (TSH) 0.738 uIU/mL (0.358-3.740); Triglycerides 89 mg/dL; Very Low Density Lipoprotein 18 mg/dL (5-40)
[2024-08-21 10:48] LABS: Microalbumin,Random Urine 6.2 mg/L (NO RANGE EST.); Microalbumin:Creatinine Ratio 5.4 mg/g CRE (<30 mg/g CRE)
== END | disposition home or self-care (01) ==
LOC: LAB 09:18
PROVIDERS: PCP Family Medicine; Referring Provider Internal Medicine Endocrinology, Diabetes & Metabolism; Visit Provider Internal Medicine Endocrinology, Diabetes & Metabolism
DX: E11.649 Type 2 diabetes mellitus with hypoglycemia without coma (principal); Z79.4 Long term (current) use of insulin; E03.9 Hypothyroidism, unspecified
CPT/HCPCS: 36415; 80053; 80061; 82043; 82570; 84439; 84443